=== PATIENT | female | born 1950 | race Caucasian/White ===

== ENCOUNTER → 2017-01-04 | Outpatient (CLI) | payer BC ==
[~2017-01-04] MED LIST: CPR250 PO; OXYC-57 PO; POTA1080
--- NOTE | 2017-01-04 15:19 | DIAGNOSTIC IMAGING REPORT ---
KUB CLINICAL HISTORY: CALCULUS OF KIDNEY nephrocalcinosis COMPARISON STUDY: 01/14/2016 FINDINGS: Deformity of all major osseous structures of the thoracolumbar spine bony pelvis and hips bilaterally. This presumably primarily is on a congenital basis. Bowel pattern is nonobstructive. Calcification previously described over the right renal pelvis potentially persists. The right lateral of the mid lumbar spine. Bowel pattern again is nonobstructive. IMPRESSION: 1. 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 2. 1.6 cm calcification most likely overlying the right renal pelvis and unchanged from the prior exam. 3. Nonobstructive bowel pattern. The above report was generated using voice recognition software. It may contain grammatical, syntax or spelling errors. Electronically signed by: Edgar Sanders M.D. 01/04/2017 3:18 PM Dictated Date/Time: 01/04/2017 3:16 PM
[2017-01-04 16:02] LABS: BLOOD UREA NITROGEN 17 mg/dl (7-18); BUN/CREATININE RATIO 37.6 (10-20); CALCIUM 9.2 mg/dl (8.5-10.1); CARBON DIOXIDE 28 mmol/L (21-32); CHLORIDE 105 mmol/L (98-107); CREATININE 0.46 mg/dl (0.60-1.20); GLUCOSE 97 mg/dl (70-99); POTASSIUM 3.7 mmol/L (3.5-5.1); SODIUM 138 mmol/L (136-145)
== END | disposition home or self-care (01) ==
LOC: C.RAD 14:41
DX: N20.0 Calculus of kidney (principal)

== ENCOUNTER → 2017-07-07 | Outpatient (CLI) | payer BC | END | disposition home or self-care (01) | LOC: C.RDSM 11:25 | PROVIDERS: ATTEND Physical Medicine & Rehabilitation Sports Medicine | DX: M54.2 Cervicalgia (principal) ==

== ENCOUNTER → 2017-10-10 | Outpatient (CLI) | payer BC ==
--- NOTE | 2017-10-10 17:14 | DIAGNOSTIC IMAGING REPORT ---
L KNEE 1 OR 2 VIEWS CLINICAL HISTORY: LEFT KNEE PAIN trauma. Pain. COMPARISON: None. DISCUSSION: Fracture distal femur. Small joint effusion of the left knee. 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 Moderate soft tissue edema IMPRESSION: Nondisplaced fracture distal femur involving what is potentially is the posterior lateral femoral condyle. Small joint effusion. The above report was generated using voice recognition software. It may contain grammatical, syntax or spelling errors. Electronically signed by: Edgar Sanders M.D. 10/10/2017 5:13 PM Dictated Date/Time: 10/10/2017 5:12 PM
== END | disposition home or self-care (01) ==
LOC: C.RDSM 15:45
PROVIDERS: ATTEND Physician Assistant
DX: M25.562 Pain in left knee (principal)

== ENCOUNTER → 2017-10-16 | Outpatient (CLI) | payer BC | END | disposition home or self-care (01) | LOC: C.RDSM 13:04 | PROVIDERS: ATTEND Physical Medicine & Rehabilitation Sports Medicine | DX: M25.562 Pain in left knee (principal) ==